=== PATIENT | female | born 1990 | race Two or more races ===

== ENCOUNTER 2023-02-22 07:51 | Day surgery (SDC) | payer OTHER | END 2023-02-22 14:05 | disposition home or self-care (01) | LOC: AMB-ENDOS 07:51 | PROVIDERS: ATTEND Colon & Rectal Surgery | DX: K62.5 Hemorrhage of anus and rectum (principal); K64.8 Other hemorrhoids; R19.4 Change in bowel habit; Z20.822 Contact with and (suspected) exposure to COVID-19; Z88.0 Allergy status to penicillin ==